=== PATIENT | male | born 1960 | race Caucasian/White ===

== ENCOUNTER 2024-01-23 19:04 | Emergency (ER) | payer MEDICAID ==
[~2024-01-23] VITALS: Ht 172.7 cm; Wt 103.4 kg
[2024-01-23 19:41] VITALS: BP_SYST 163; PULSE 63; RESP 18; TEMP 98.1; O2SAT 98
[2024-01-23 22:13] VITALS: BP_SYST 163; PULSE 63; RESP 18; TEMP 98.1; O2SAT 98
== END 2024-01-23 22:12 | disposition home or self-care (01) ==
LOC: SED 19:04
DX: S09.90XA Unspecified injury of head, initial encounter (principal); R42 Dizziness and giddiness; Z91.041 Radiographic dye allergy status; Z98.890 Other specified postprocedural states; W22.8XXA Striking against or struck by other objects, initial encounter; Y93.89 Activity, other specified; Y92.89 Other specified places as the place of occurrence of the external cause; Y99.8 Other external cause status
CPT/HCPCS: 70450-TC; 99284